=== PATIENT | male | born 1955 | race Asian ===

== ENCOUNTER 2016-04-29 16:23 | Emergency (ER) | payer BC ==
[~2016-04-29] VITALS: Ht 160 cm; Wt 70.0 kg
[~2016-04-29 16:23] MED LIST: HYDCR1 TOP; PRED20TA PO
[2016-04-29 16:36] VITALS: TEMP 36.7; Ht 160 cm; Wt 70.0 kg
[2016-04-29] MEDS ORDERED: IBUP-1050 PO (16:53)
[2016-04-29] MEDS ORDERED: ALUMINUM/MAGNESIUM SUSP 30 ML UDC PO STA (16:58)
[2016-04-29] MEDS ORDERED: FAMOTIDINE 20MG/102 ML D5W IV STA (16:58)
[2016-04-29] MEDS ORDERED: LIDOCAINE HCL 2% VISC SOLN 20 ML UDC PO STA (16:58)
[2016-04-29 17:27] LABS: BASO % 0.2 %; BASO ABS # 0.02 K/uL (0-0.2); COMPLETE YES; EOS % 0.5 %; HEMATOCRIT 42.8 % (42-52); IG% 0.4 %; LYMPH % 27.7 %; LYMPH ABS # 2.99 K/uL (1.2-3.4); MEAN CORPUSCULAR HEMOGLOBIN 31.4 pg (25-34); MEAN CORPUSCULAR HGB CONC 35.3 g/dl (32-36); MEAN PLATELET VOLUME 9.2 fL (7.4-10.4); MONO % 4.3 %; NEUT % 66.9 %; PLATELET COUNT 262 K/uL (130-400); RED BLOOD COUNT 4.81 M/uL (4.7-6.1); WHITE BLOOD COUNT 10.81 K/uL (4.8-10.8)
[2016-04-29 17:41] LABS: ALT/SGPT 35 U/L (12-78); AST/SGOT 18 U/L (15-37); BLOOD UREA NITROGEN 21 mg/dl (7-18); BUN/CREATININE RATIO 17.7 (10-20); CALCIUM 8.9 mg/dl (8.5-10.1); CARBON DIOXIDE 26 mmol/L (21-32); CHLORIDE 109 mmol/L (98-107); GLUCOSE 99 mg/dl (70-99); POTASSIUM 4.2 mmol/L (3.5-5.1); SODIUM 143 mmol/L (136-145)
[2016-04-29 17:44] LABS: ALKALINE PHOSPHATASE 79 U/L (45-117)
--- NOTE | 2016-04-29 18:06 | DIAGNOSTIC IMAGING REPORT ---
CT OF THE ABDOMEN AND PELVIS WITHOUT CONTRAST, STONE PROTOCOL CLINICAL HISTORY: Left flank pain. COMPARISON STUDY: None. TECHNIQUE: Helical axial images of the abdomen and pelvis were obtained without IV or oral contrast according to renal stone protocol. FINDINGS: A 2 mm proximal left ureteral calculus results in mild left hydronephrosis. There is moderate left perinephric infiltration. There are suspected punctate bilateral renal calculi. There is no right hydronephrosis. A 4 mm subpleural nodule within the left lower lobe shown on image 11 of 182 is likely benign. The heart is mildly enlarged. Unenhanced images of liver, spleen, adrenal glands and pancreas are normal. There is no lymphadenopathy. There is no evidence for a bowel obstruction. Skeletal structures are unremarkable. IMPRESSION: 1. 2 mm proximal left ureteral calculus which results in mild left hydronephrosis and moderate left perinephric infiltration. 2. Suspected additional punctate bilateral renal calculi. 3. 4 mm subpleural left lower lobe nodule. This is likely benign but a follow-up chest CT in one year to ensure stability is recommended. Electronically signed by: Morris Lees M.D. 04/29/2016 6:04 PM Dictated Date/Time: 04/29/2016 6:00 PM
[2016-04-29 18:46] LABS: URINE APPEARANCE CLEAR (CLEAR); URINE BILIRUBIN NEG (NEG); URINE COLOR YELLOW; URINE NITRITE NEG (NEG); URINE PH 6.5 (4.5-7.5); UROBILINOGEN NEG (NEG)
[2016-04-29 18:49] LABS: MANUAL MICROSCOPIC REQUIRED? NO; REVIEW REQ? NO
[2016-04-29] MEDS ORDERED: MoRPHine SULFATE 4 MG/ML 1 ML CARP\\VIAL IV STA (19:02)
[2016-04-29] MEDS ORDERED: ONDANSETRON INJ 2 MG/ML 2 ML VIAL IV STA (19:02)
[2016-04-29] MEDS ORDERED: KETOROLAC TROMETHAMINE 30 MG/ML VIAL IV STA (19:02)
[2016-04-29 20:32] VITALS: BP 133/84; PULSE 75; O2SAT 98
[2016-04-29] MEDS ORDERED: OXYC1TAB3 PO (20:34)
[2016-04-29] MEDS ORDERED: OXYCODONE IR HOME PACK PO ONE (20:45)
--- NOTE | 2016-04-29 23:34 | EMERGENCY ROOM VISIT NOTE ---
History Report prepared by Javon: America Silvestre Under the Supervision of: Dr. Marcel De La O M.D. First contact with patient: 16:41 Chief Complaint: ABDOMINAL PAIN Stated Complaint: PAIN IN LEFT SIDE ABD History of Present Illness The patient is a 61 year old male who presents to the Emergency Room with complaints of worsening left sided abdominal pain beginning at 11:30am this morning. The patient describes the pain as a discomfort and feels like something is being blocked, he notes that it is not sharp. He states that the pain is located in the middle left side of his abdomen and does not radiate to his back. The patient states that when he experienced similar abdominal pain on the right side which he describes as stomach upset. His pain today is only on the left side. He also notes that he had no symptoms prior to 11:30am. The patient denies nausea, vomiting, diarrhea, fever, dysuria, blood in urine, abnormal bowel movements, previous abdominal surgeries, or drinking alcohol. Source of History: patient Onset: 11:30am Position: abdomen (left sided ) Quality: other (discomfort, something blocked) Timing: worsening Associated Symptoms: No diarrhea, No fevers, No nausea, No vomiting Review of Systems See HPI for pertinent positives & negatives. A total of 10 systems reviewed and were otherwise negative. Past Medical & Surgical Medical Problems: (1) No Known Active Medical Problems Family History Patient reports no known family medical history. Social History Smoking Status: Never Smoker Alcohol Use: none Marital Status: Housing Status: lives with significant other Current/Historical Medications Scheduled Ibuprofen (Advil), 400 MG PO DIRECTED Scheduled PRN Oxycodone Ir (Roxicodone Ir), 5 MG PO Q4H PRN for Pain Allergies Coded Allergies: No Known Allergies (Unverified , 04/29/16) Physical Exam Vital Signs Date Time Temp Pulse Resp B/P Pulse Ox O2 Delivery O2 Flow Rate FiO2 04/29/16 20:32 75 20 133/84 98 Room Air 04/29/16 18:11 61 18 158/92 98 Room Air 04/29/16 16:36 36.7 68 18 174/96 96 Room Air Physical Exam Constitutional: Vital signs reviewed. Eyes: Pupils are equal round reactive to light. Conjunctiva are noninjected. ENT: Pharynx is clear without erythema or exudate. Mucous membranes are moist. Neck supple without meningeal signs. Respiratory: Clear to auscultation bilaterally. Breath sounds are equal bilaterally. Cardiovascular: Regular rate and rhythm. No rubs or gallops. GI: Soft, nondistended with left upper quadrant tenderness. No guarding. Bowel sounds are present. Musculoskeletal: No peripheral edema. No lower extremity tenderness. No CVA tenderness. Integumentary: No cyanosis. Neurological: The patient is awake and alert. No focal deficits. Psychiatric: Normal affect. Medical Decision & Procedures ER Provider Diagnostic Interpretation: CT results as stated below per my review and radiologist interpretation. CT OF THE ABDOMEN AND PELVIS WITHOUT CONTRAST, STONE PROTOCOL CLINICAL HISTORY: Left flank pain. COMPARISON STUDY: None. TECHNIQUE: Helical axial images of the abdomen and pelvis were obtained without IV or oral contrast according to renal stone protocol. FINDINGS: A 2 mm proximal left ureteral calculus results in mild left hydronephrosis. There is moderate left perinephric infiltration. There are suspected punctate bilateral renal calculi. There is no right hydronephrosis. A 4 mm subpleural nodule within the left lower lobe shown on image 11 of 182 is likely benign. The heart is mildly enlarged. Unenhanced images of liver, spleen, adrenal glands and pancreas are normal. There is no lymphadenopathy. There is no evidence for a bowel obstruction. Skeletal structures are unremarkable. IMPRESSION: 1. 2 mm proximal left ureteral calculus which results in mild left hydronephrosis and moderate left perinephric infiltration. 2. Suspected additional punctate bilateral renal calculi. 3. 4 mm subpleural left lower lobe nodule. This is likely benign but a follow-up chest CT in one year to ensure stability is recommended. Electronically signed by: Morris Lees M.D. 04/29/2016 6:04 PM Dictated Date/Time: 04/29/2016 6:00 PM Laboratory Results 04/29/16 17:07 Red Blood Count 4.81, Mean Corpuscular Volume 89.0, Mean Corpuscular Hemoglobin 31.4, Mean Corpuscular Hemoglobin Concent 35.3, Mean Platelet Volume 9.2, Neutrophils (%) (Auto) 66.9, Lymphocytes (%) (Auto) 27.7, Monocytes (%) (Auto) 4.3, Eosinophils (%) (Auto) 0.5, Basophils (%) (Auto) 0.2, Neutrophils # (Auto) 7.25, Lymphocytes # (Auto) 2.99, Monocytes # (Auto) 0.46, Eosinophils # (Auto) 0.05, Basophils # (Auto) 0.02 04/29/16 17:07 Test 04/29/16 17:07 04/29/16 17:55 White Blood Count 10.81 K/uL (4.8-10.8) Red Blood Count 4.81 M/uL (4.7-6.1) Hemoglobin 15.1 g/dL (14.0-18.0) Hematocrit 42.8 % (42-52) Mean Corpuscular Volume 89.0 fL (80-100) Mean Corpuscular Hemoglobin 31.4 pg (25-34) Mean Corpuscular Hemoglobin Concent 35.3 g/dl (32-36) Platelet Count 262 K/uL (130-400) Mean Platelet Volume 9.2 fL (7.4-10.4) Neutrophils (%) (Auto) 66.9 % Lymphocytes (%) (Auto) 27.7 % Monocytes (%) (Auto) 4.3 % Eosinophils (%) (Auto) 0.5 % Basophils (%) (Auto) 0.2 % Neutrophils # (Auto) 7.25 K/uL (1.4-6.5) Lymphocytes # (Auto) 2.99 K/uL (1.2-3.4) Monocytes # (Auto) 0.46 K/uL (0.11-0.59) Eosinophils # (Auto) 0.05 K/uL (0-0.5) Basophils # (Auto) 0.02 K/uL (0-0.2) RDW Standard Deviation 44.1 fL (36.4-46.3) RDW Coefficient of Variation 13.4 % (11.5-14.5) Immature Granulocyte % (Auto) 0.4 % Immature Granulocyte # (Auto) 0.04 K/uL (0.00-0.02) Anion Gap 8.0 mmol/L (3-11) Est Creatinine Clear Calc Drug Dose 57.5 ml/min Estimated GFR () 75.7 Estimated GFR (Non- 65.3 BUN/Creatinine Ratio 17.7 (10-20) Calcium Level 8.9 mg/dl (8.5-10.1) Total Bilirubin 0.3 mg/dl (0.2-1) Direct Bilirubin < 0.1 mg/dl (0-0.2) Aspartate Amino Transf (AST/SGOT) 18 U/L (15-37) Alanine Aminotransferase (ALT/SGPT) 35 U/L (12-78) Alkaline Phosphatase 79 U/L (45-117) Total Protein 7.4 gm/dl (6.4-8.2) Albumin 4.2 gm/dl (3.4-5.0) Lipase 257 U/L (73-393) Urine Color YELLOW Urine Appearance CLEAR (CLEAR) Urine pH 6.5 (4.5-7.5) Urine Specific Hurricane 1.030 (1.000-1.030) Urine Protein NEG (NEG) Urine Glucose (UA) NEG (NEG) Urine Ketones TRACE (NEG) Urine Occult Blood 3+ (NEG) Urine Nitrite NEG (NEG) Urine Bilirubin NEG (NEG) Urine Urobilinogen NEG (NEG) Urine Leukocyte Esterase NEG (NEG) Urine WBC (Auto) 1-5 /hpf (0-5) Urine RBC (Auto) 0-4 /hpf (0-4) Urine Hyaline Casts (Auto) 1-5 /lpf (0-5) Urine Epithelial Cells (Auto) 5-10 /lpf (0-5) Urine Bacteria (Auto) NEG (NEG) Laboratory results as reviewed by me. Medications Administered Medications (Trade) Dose Ordered Sig/Chiki Route Start Time Stop Time Status Last Admin Dose Admin Famotidine (Pepcid 20mg/100 ml) 20 mg ONE STAT IV 04/29/16 16:58 04/29/16 17:00 DC 04/29/16 17:14 20 MG Lidocaine HCl (Viscous Lidocaine 2% Soln) 10 ml NOW STAT PO 04/29/16 16:58 04/29/16 16:59 DC 04/29/16 17:14 10 ML Al Hydroxide/Mg Hydroxide (Maalox Susp) 30 ml NOW STAT PO 04/29/16 16:58 04/29/16 16:59 DC 04/29/16 17:14 30 ML Ketorolac Tromethamine (Toradol Inj) 10 mg NOW STAT IV 04/29/16 19:02 04/29/16 19:03 DC 04/29/16 19:51 10 MG Morphine Sulfate (MoRPHine SULFATE INJ) 4 mg NOW STAT IV 04/29/16 19:02 04/29/16 19:03 DC 04/29/16 19:52 4 MG Ondansetron HCl (Zofran Inj) 4 mg NOW STAT IV 04/29/16 19:02 04/29/16 19:03 DC 04/29/16 19:52 4 MG Oxycodone HCl (Roxicodone Immediate Rel 5MG Home Pack) 1 homepack UD ONCE PO 04/29/16 20:45 04/29/16 20:46 DC 04/29/16 20:39 1 HOMEPACK ECG Indication: abdominal pain Rate (beats per minute): 66 Rhythm: normal sinus Findings: no acute ischemic change, no ectopy ED Course 1642: The patient was evaluated in room B7. A complete history and physical exam was performed. 1657: Maalox Susp 30 ml PO, Viscous Lidocaine 2% Soln 10 ml PO, Pepcid 20mg/100 ml 20 mg IV. 1900: I reevaluated the patient. I discussed the patient's test result with him. He is still in pain. 1901: Zofran Inj 4 mg IV, Morphine Sulfate 4 mg IV, Toradol Inj 10 mg IV. 2031: I reevaluated the patient. I reviewed his test results with him. He is feeling better. 2039: Upon reevaluation, the patient appeared to have improvement of his symptoms. I discussed tonight's findings with him. He verbalized agreement of the treatment plan. He was discharged home. 2044: Roxicodone Immediate Rel 5 MG Home Pack 1 homepack PO. Medical Decision This is a 61-year-old male who presents with left-sided abdominal pain. Differential diagnosis includes gastritis, peptic ulcer disease, pancreatitis, kidney stones, pyelonephritis, irritable bowel syndrome, diverticulitis. I did perform a limited focused review of portions of the patient's old chart on the electronic medical record. The patient has had no recent pertinent visits to this hospital. I did evaluate the patient as noted above. IV access was established. I did order and personally review the patient's 12-lead EKG as described above. There are no acute ischemic changes. I did treat patient with Pepcid IV and a GI cocktail. I did order and review the patient's blood work as noted in the electronic medical record. Urinalysis demonstrates hematuria. I did order a CT of the abdomen and pelvis. I did review the images myself as well as the radiology report as described above. He does have a 2 mm left proximal ureteral stone. He also has a pulmonary nodule on the left side. He is a nonsmoker. I did reassess the patient. He is still having pain. He was given IV Toradol and morphine and Zofran. I did reassess the patient. He is feeling better. He will follow up with his doctor as well as urology. He was discharged with a prescription for oxycodone for pain and given precautions regarding this medication. Impression Primary Impression: Renal colic Additional Impression: Pulmonary nodule Scribe Attestation The scribe's documentation has been prepared under my direct and personally reviewed by me in its entirety. I confirm that the note above accurately reflects all work, treatment, procedures, and medical decision making performed by me. Departure Information Dispostion Home / Self-Care Prescriptions Oxycodone Ir (Roxicodone Ir) 5 Mg Tab 5 MG PO Q4H Y for Pain, #20 TAB Prov: Marcel De La O M.D. 04/29/16 Referrals No Doctor, Assigned (PCP) Forms Call Back Authorization, HOME CARE DOCUMENTATION FORM, IMPORTANT VISIT INFORMATION Patient Instructions ED Nodule Solitary Pulmonary, Kidney Stones Expectant Therapy, [facility] Additional Instructions You have been examined and treated today on an emergency basis only. This is not a substitute for, or an effort to provide, complete comprehensive medical care. It is impossible to recognize and treat all injuries or illnesses in a single emergency department visit. It is therefore important that you follow up closely with your physician and/or Dr. Waldron of urology. Call as soon as possible for an appointment. Return for worsening symptoms or if you develop fever, vomiting, or any other concerning symptoms. Problem Qualifiers
== END 2016-04-29 20:44 | disposition home or self-care (01) ==
LOC: C.EDB 16:24
DX: N13.2 Hydronephrosis with renal and ureteral calculous obstruction (principal); R91.1 Solitary pulmonary nodule